=== PATIENT | female | born 1950 | race Two or more races ===

== ENCOUNTER → 2017-04-07 | Day surgery (SDC) | payer MEDICAID, MEDICARE ==
[~2017-04-07] MED LIST: SODIUM BICARBONATE 4% (2.4MEQ) 5ML VIAL IV ONE
== END | disposition home or self-care (01) ==
LOC: RAD 10:04
PROVIDERS: ATTEND Internal Medicine Endocrinology, Diabetes & Metabolism
DX: D34 Benign neoplasm of thyroid gland (principal)
CPT/HCPCS: 10022; 76942; 88172; 88173; J3490

== ENCOUNTER 2021-04-07 14:45 | Emergency (ER) | payer MEDICARE, OTHER ==
[~2021-04-07] VITALS: Ht 167.6 cm; Wt 114.0 kg
[2021-04-07 14:49] VITALS: BP 158/80
[2021-04-07] MEDS ORDERED: POLY15DR31 RIGHTEYE (19:16)
[2021-04-07] MEDS ORDERED: P50 MT (19:16)
[2021-04-07] MEDS ORDERED: VALA100044 MT (19:16)
== END 2021-04-07 19:29 | disposition home or self-care (01) ==
LOC: ER 14:45
DX: G51.0 Bell's palsy (principal); I10 Essential (primary) hypertension; E78.00 Pure hypercholesterolemia, unspecified; E11.9 Type 2 diabetes mellitus without complications
CPT/HCPCS: 70551; 99284